=== PATIENT | female | born 1995 | race Two or more races ===

== ENCOUNTER 2017-09-23 14:02 | Emergency (ER) | payer SELFPAY, OTHER ==
[2017-09-23 14:53] LABS: URINE HCG POC HCG POSITIVE (Negative)
[2017-09-23 15:02] LABS: BILIRUBIN,URINE NEGATIVE (NEG); CLARITY,URINE CLEAR; COLOR,URINE YELLOW; GLUCOSE,URINE NEGATIVE (NEG); NITRITE,URINE NEGATIVE (NEG); PROTEIN,URINE NEGATIVE (NEG-TRACE); UROBILINOGEN,URINE 0.2 mg/dL (0.2 mg/dL)
[2017-09-23 15:26] LABS: BACTERIA,URINE FEW /HPF (0-FEW); SQUAMOUS EPITHELIAL CELL,UR MANY /LPF
== END 2017-09-23 16:14 | disposition home or self-care (01) ==
LOC: ER 14:02
DX: O26.891 Other specified pregnancy related conditions, first trimester (principal); O99.711 Diseases of the skin and subcutaneous tissue complicating pregnancy, first trimester; R21 Rash and other nonspecific skin eruption; Z3A.01 Less than 8 weeks gestation of pregnancy
CPT/HCPCS: 81001; 81025; 99283

== ENCOUNTER 2018-05-07 05:42 | Inpatient (IN) | payer OTHER ==
[~2018-05-07] VITALS: Ht 162.6 cm; Wt 71.7 kg
[~2018-05-07 05:42] MED LIST: ONDA4TAB10 SL
[2018-05-07] MEDS ORDERED: IV RINGERS,LACTATED 1000ML 1,000 ML IV SCH ×2 (05:44→11:27)
[2018-05-07] MEDS ORDERED: ACETAMINOPHEN 325 MG TABLET. PO PRN ×2 (05:45→18:30)
[2018-05-07] MEDS ORDERED: BUTORPHANOL 2 MG/ML VIAL. IV PRN (05:45)
[2018-05-07] MEDS ORDERED: TERBUTALINE 1 MG/ML VIAL. SQ PRN (05:45)
[2018-05-07] MEDS ORDERED: OXYTOCIN 30 UNIT/500 ML PREMIX 500 ML IV PRN ×3 (05:45→18:30)
[2018-05-07] MEDS ORDERED: fentaNYL PF VIAL 100 MCG/2 ML VIAL IV PRN (05:45)
[2018-05-07] MEDS ORDERED: 0.9 % SODIUM CHLORIDE 10 ML DISP.SYRIN. IV PRN ×2 (05:45→18:30)
[2018-05-07] MEDS ORDERED: NALBUPHINE 10 MG/ML AMPUL. IV PRN (05:45)
[2018-05-07] MEDS ORDERED: MAG HYDROX/ALUMINUM HYD/SIMETH 30 ML ORAL.SUSP PO PRN ×2 (05:45→18:30)
[2018-05-07] MEDS ORDERED: ONDANSETRON PF 4 MG/2 ML VIAL. IV PRN (05:45)
[2018-05-07] MEDS ORDERED: LIDOCAINE 1% PF 30 ML VIAL. INJ PRN (05:45)
[2018-05-07] MEDS ORDERED: AMPICILLIN SODIUM 2 GM in IV NORMAL SALINE 100ML 100 ML IV ONE (06:00)
[2018-05-07 06:12] VITALS: BP 119/64
[2018-05-07 06:51] LABS: BASO % 1 % (0-3); EOS # 0.1 x10^3/uL (0.0-0.7); EOS % 1 % (0-3); HEMATOCRIT 32.4 % (36.0-47.0); LYMPH # 2.5 x10^3/uL (1.0-4.8); LYMPH % 29 % (24-48); MEAN CORPUSCULAR HEMOGLOBIN 32 pg (25-35); MEAN CORPUSCULAR HGB CONC 34 g/dL (31-37); MEAN CORPUSCULAR VOLUME 93 fL (79-100); MONO # 0.6 x10^3/uL (0.0-1.1); MONO % 7 % (0-9); NEUT # 5.4 x10^3uL (1.8-7.7); NEUT % 63 % (31-73); PLATELET COUNT 297 x10^3/uL (140-400); RED BLOOD COUNT 3.47 x10^6/uL (3.50-5.40); RED CELL DISTRIBUTION WIDTH 14.2 % (11.5-14.5); WHITE BLOOD COUNT 8.6 x10^3/uL (4.0-11.0)
[2018-05-07] MEDS ORDERED: AMPICILLIN SODIUM 1 GM in IV NORMAL SALINE 50ML 50 ML IV SCH (10:00)
[2018-05-07] MEDS ORDERED: ROPIVacaine 0.2% IN 0.9%NACL PF 40 MG/20 ML DISP.SYRIN. EPID PRN (11:30)
[2018-05-07] MEDS ORDERED: BUPIVACAINE MPF 0.25% 30 ML VIAL. EPID PRN (11:30)
[2018-05-07] MEDS ORDERED: NALOXONE 0.4 MG/ML VIAL. IV PRN (11:30)
[2018-05-07] MEDS ORDERED: fentaNYL PF VIAL 100 MCG/2 ML VIAL EPI PRN (11:30)
[2018-05-07] MEDS ORDERED: L&D EPIDURAL SYRINGE 50 ML EPID PRN ×2 (11:30→12:30)
[2018-05-07 14:39] LABS: BILIRUBIN,URINE NEGATIVE (NEG); CLARITY,URINE CLOUDY; COLOR,URINE YELLOW; NITRITE,URINE NEGATIVE (NEG); PROTEIN,URINE NEGATIVE (NEG-TRACE)
[2018-05-07 14:53] LABS: BACTERIA,URINE FEW /HPF (0-FEW); RBC,URINE RARE /HPF (0-2); SQUAMOUS EPITHELIAL CELL,UR OCC /LPF; WBC,URINE OCC /HPF (0-4)
--- NOTE | 2018-05-07 18:25 | PDOC1 ---
OB - History Hx of Present Care: Good Care Ultrasounds: Normal mid trimester US Obstetrical Complications: None Medical Complications: None Past Family/Social History * Past Medical, Surgical, Family and Obstetric Histories reviewed from chart. Rubella: Immune RPR/VDRL: Negative GBS Status: Positive HBsAG: Negative OB - Chief Complaint & HPI Date of Admission: Date of Admission: May 07, 2018 at 05:42 Chief Complaint/History : 2 Para: 1 EGA: 39 Reason for admission: group B positive strep, induction of labor Admission Nurse Assessment Rev: Yes OB - Admission Exam Physical Exam Vitals: VS - Last 72 Hours, by Label Date Time Temp Pulse Resp B/P (MAP) Pulse Ox O2 Delivery O2 Flow Rate FiO2 05/07/18 06:12 97.4 79 18 119/64 (82) Room Air 97.4 HEENT: Normal Heart: Regular Rate Lungs: Clear Abdomen: Gravid, Non tender, Soft Extremities: Edema Reflexes: Normal Cervical Dilatation: 2cm Effacement: 75% Station: -3 Membranes: Intact Heart Rate: Normal Accelerations: Accelerations Present Decelerations: No decelerations Contractions on Admission: None Text A: 39 wks IUP GBS positive IOL secondary discomforts P: Admit IOL pitocin. Start Ampiciilin for GBS status. PAXTON VÁZQUEZ Jr, MD May 07, 2018 18:25
--- NOTE | 2018-05-07 18:27 | PDOC ---
VAGINAL DELIVERY DATE DATE: 05/07/18 TIME: 18:24 : 2 Para: 2 EGA: 39 VAGINAL DELIVERY: VTX VACCUM ASSISTED: No PLACENTA: Spontaneous 9/9 SEX: Female WEIGHT Weight [ 6 lbs. 4 oz] Nuchal Cord: Yes, Times 1 Amniotic Fluid: Clear PAIN: Epidural EPISIOTOMY: No EXTENSION: No EBL 300 ml COMPLICATIONS none CONDITION pt. stable Signs of Intrauterine Infectio: None Shoulder Dystocia: No PAXTON VÁZQUEZ Jr, MD May 07, 2018 18:27
[2018-05-07] MEDS ORDERED: HYDROCORTISONE 1% TOPICAL OINTMENT 30GM TUBE. TP PRN (18:30)
[2018-05-07] MEDS ORDERED: BENZOCAINE 20% TOPICAL AEROSOL SPRAY 57GM CAN. TP PRN (18:30)
[2018-05-07] MEDS ORDERED: SIMETHICONE 80 MG TAB.CHEW PO PRN (18:30)
[2018-05-07] MEDS ORDERED: MMR per PROTOCOL. MC PRN (18:30)
[2018-05-07] MEDS ORDERED: diphenhydrAMINE HCL 25 MG CAPSULE PO PRN (18:30)
[2018-05-07] MEDS ORDERED: ZOLPIDEM 5 MG TABLET. PO PRN (18:30)
[2018-05-07] MEDS ORDERED: PHENYLEPH/MINERAL OIL/PETROLAT RECTAL OINTMENT 28GM TUBE. RC PRN (18:30)
[2018-05-07] MEDS ORDERED: MAGNESIUM HYDROXIDE 2,400 MG/30 ML ORAL.SUSP. PO PRN (18:30)
[2018-05-07] MEDS: IBUPROFEN 400 MG TABLET. PO PRN (18:42)
[2018-05-07 19:48] VITALS: BP 103/67
[2018-05-07 23:03] VITALS: BP 105/67
[2018-05-08 05:09] LABS: BASO # 0.1 x10^3/uL (0.0-0.2); BASO % 1 % (0-3); EOS # 0.1 x10^3/uL (0.0-0.7); EOS % 1 % (0-3); HEMATOCRIT 33.1 % (36.0-47.0); HEMOGLOBIN 11.2 g/dL (12.0-15.5); LYMPH # 3.4 x10^3/uL (1.0-4.8); LYMPH % 32 % (24-48); MEAN CORPUSCULAR HEMOGLOBIN 32 pg (25-35); MEAN CORPUSCULAR HGB CONC 34 g/dL (31-37); MEAN CORPUSCULAR VOLUME 94 fL (79-100); MONO # 0.8 x10^3/uL (0.0-1.1); MONO % 7 % (0-9); NEUT # 6.2 x10^3uL (1.8-7.7); NEUT % 59 % (31-73); PLATELET COUNT 254 x10^3/uL (140-400); RED BLOOD COUNT 3.53 x10^6/uL (3.50-5.40); RED CELL DISTRIBUTION WIDTH 14.5 % (11.5-14.5); WHITE BLOOD COUNT 10.6 x10^3/uL (4.0-11.0)
[2018-05-08] MEDS: IBUPROFEN 400 MG TABLET. PO PRN ×2 (05:41→14:27)
[2018-05-08 06:00] VITALS: BP 103/69
[2018-05-08] MEDS ORDERED: FERROUS SULFATE 325 MG TABLET. PO SCH (08:00)
[2018-05-08] MEDS ORDERED: MEASLES, MUMPS & RUBELLA VACC 0.5 ML VIAL. VAX SQ ONE (08:00)
[2018-05-08] MEDS: DOCUSATE SODIUM 100 MG CAPSULE. PO PRN ×2 (09:06→19:23)
[2018-05-08] MEDS: oxyCODONE/APAP 5/325 1 TAB TABLET PO PRN ×2 (09:06→21:46)
--- NOTE | 2018-05-08 09:08 | PDOC ---
Provider Note Provider Note Doing well VSS Uterus NTTP FU in AM ANTONIO GARCES MD May 08, 2018 09:08
[2018-05-08 15:22] VITALS: BP 99/71
[2018-05-08 18:57] VITALS: BP 102/64
[2018-05-08 21:43] VITALS: BP 102/71
[2018-05-09 00:23] VITALS: BP 116/67
[2018-05-09] MEDS: DOCUSATE SODIUM 100 MG CAPSULE. PO PRN (08:10)
[2018-05-09] MEDS: IBUPROFEN 400 MG TABLET. PO PRN (08:10)
[2018-05-09 11:21] VITALS: BP 104/72
--- NOTE | 2018-05-09 14:32 | PDOC3 ---
OB DISCHARGE SUMMARY DATE OF ADMISSION: 05/07/18 DATE OF DISCHARGE: 05/09/18 REASON FOR ADMISSION: Induction of labor PROCEDURES: Ultrasound INTRAPARTUM PROCEDURES: Spontanous Vag Deliv PROCEDURES: None OPERATIONS: None DISCHARGE DIAGNOSIS: Term Delivered DISCHARGE INFORMATION: Activity, Diet HOSPITAL COURSE Unremarkable CONDITION AT DISCHARGE Stable ANTONIO GARCES MD May 09, 2018 14:32
[2018-05-09] MEDS ORDERED: HYDR-3164 PO (14:34)
[2018-05-09] MEDS ORDERED: NAPR-514 PO (14:34)
== END 2018-05-09 15:23 | disposition home or self-care (01) | DRG 807 ==
LOC: 3 SO LND 05:42 → 3 NORTH 19:39
PROVIDERS: ADMIT Specialist; ATTEND Specialist
PROC: 10E0XZZ Delivery of Products of Conception, External Approach (ICD-10-PCS; principal; 2018-05-07)
PROC: 10907ZC Drainage of Amniotic Fluid, Therapeutic from Products of Conception, Via Natural or Artificial Opening (ICD-10-PCS; 2018-05-07)
PROC: 3E033VJ Introduction of Other Hormone into Peripheral Vein, Percutaneous Approach (ICD-10-PCS; 2018-05-07)
PROC: 00HU33Z Insertion of Infusion Device into Spinal Canal, Percutaneous Approach (ICD-10-PCS; 2018-05-07)
PROC: 3E0R3BZ Introduction of Anesthetic Agent into Spinal Canal, Percutaneous Approach (ICD-10-PCS; 2018-05-07)
DX: O99.824 Streptococcus B carrier state complicating childbirth (principal); Z37.0 Single live birth; O69.81X0 Labor and delivery complicated by cord around neck, without compression, not applicable or unspecified; Z3A.39 39 weeks gestation of pregnancy
CPT/HCPCS: 36415; 81001; 85025; 86592; 86762; 86850; 86900; 86901; 87086; 87340; 90471; 90707; J0290; J2590; J2795; J7120

== ENCOUNTER → 2018-07-31 | Outpatient (CLI) | payer OTHER ==
[~2018-07-31] VITALS: Ht 167.6 cm; Wt 67.6 kg
[~2018-07-31] MED LIST changes: +HYDR-3164 PO; +NAPR-514 PO; +NAPR-677 PO; +NORMAL SALINE IV ONE; +OMEP20CA10 PO; +SERT50TA PO; +SINCALIDE IV ONE
--- NOTE | 2018-07-31 12:50 | RAD ---
Indication: Abdominal pain for 4 years TECHNIQUE: Nuclear medicine HIDA scan with 5.5 mCi of technetium 99 M Choletec. Ejection fraction was likely left infusion of 1.4 mcg of cholecystokinin. COMPARISON: Ultrasound from 11/07/2017. FINDINGS: Gallbladder is confidently visualized at 5 minutes and continues to fill in a retrograde fashion. Small bowel activity is confidently seen at 30 minutes. Ejection fraction of 74 percent. IMPRESSION: 1. No scintigraphic evidence of cystic duct obstruction. 2. Normal ejection fraction. Electronically signed by: Howie Coleman DO (07/31/2018 12:47 PM) [facility]
== END | disposition home or self-care (01) ==
LOC: NM 09:16
PROVIDERS: ATTEND Internal Medicine Gastroenterology
DX: R10.13 Epigastric pain (principal)
CPT/HCPCS: 78227; A9537; J2805

== ENCOUNTER → 2018-08-11 | Day surgery (SDC) | payer OTHER ==
[~2018-08-11] MED LIST changes: +DEXAMETHASONE SOD PHOS 20 MG/5 ML VIAL. ONE; +IV RINGERS,LACTATED 1000ML 1,000 ML IV SCH; +LIDOCAINE 2% PF 5 ML VIAL. ONE; -NORMAL SALINE IV ONE; +PROPOFOL 20 ML IV ONE; -SINCALIDE IV ONE; +diphenhydrAMINE 50 MG/ML VIAL ONE
[2018-08-11 16:57] VITALS: BP 112/79
[2018-08-11 17:12] LABS: U PREG PATIENT NEGATIVE (NEG)
--- NOTE | 2018-08-13 13:10 | PATHOLOGY ---
[place] Accession Number: [id number] . 01 Material submitted: . DUODENAL BIOPSIES . 01 Clinical history: . Abdominal pain . 02 Diagnosis: Duodenal biopsies: - No significant pathologic abnormalities. (JPM:mary lou; 08/13/2018) QMS/08/13/2018 . 02 Comment: Sections of the duodenal biopsy reveal segments of duodenal and small intestine mucosa. Where best oriented, the mucosal villi show no sprue-like changes or significant inflammatory changes. There are a couple of mucosal-associated lymphoid aggregates. (JPM:mary lou; 08/13/2018) . 02 Electronically signed: . Freddy Velez MD, Pathologist NPI- [id number] . 01 Gross description: . The specimen is received in formalin, labeled "Daria Zamorano, duodenal biopsies, rule out celiac", are several irregular yoder mucosal fragments measuring 0.7 x 0.7 x 0.2 cm in aggregate, entirely submitted in A1. ([facility]; 08/12/2018) SHS/SHS . 02 Pathologist provided ICD-10: R10.9 . 02 CPT . 796875 Specimen Comment: A courtesy copy of this report has been sent to Specimen Comment: [phone]. Specimen Comment: Report sent to Specimen Comment: A duplicate report has been generated due to demographic updates. Performed at: 01 [facility] [address], [place] [id number] MD Avery eNves MD Phone: [phone] Performed at: 02 [facility] [address] [place], [place] [id number] MD Freddy Velez MD Phone: [phone]
== END | disposition home or self-care (01) ==
LOC: SURG 15:10
PROVIDERS: ATTEND Internal Medicine Gastroenterology
DX: K31.89 Other diseases of stomach and duodenum (principal); K21.9 Gastro-esophageal reflux disease without esophagitis; F41.9 Anxiety disorder, unspecified; F32.9 Major depressive disorder, single episode, unspecified; Z72.0 Tobacco use; Z72.89 Other problems related to lifestyle; Z79.899 Other long term (current) drug therapy
CPT/HCPCS: 43239; 81025; 88305; J1100; J1200; J2001; J2704

== ENCOUNTER 2019-03-01 10:38 | Day surgery (SDC) | payer OTHER ==
[~2019-03-01 10:38] MED LIST changes: -DEXAMETHASONE SOD PHOS 20 MG/5 ML VIAL. ONE; +HYDROmorphone 2 MG/ML VIAL IV PRN; -LIDOCAINE 2% PF 5 ML VIAL. ONE; +MORPHINE SULFATE 2 MG/ML VIAL. IV PRN; +ONDANSETRON PF 4 MG/2 ML VIAL. IV PRN; +PROCHLORPERAZINE 10 MG/2 ML VIAL. IV PRN; -PROPOFOL 20 ML IV ONE; -diphenhydrAMINE 50 MG/ML VIAL ONE; +fentaNYL PF VIAL 100 MCG/2 ML VIAL IV PRN
[2019-03-01] MEDS ORDERED: MIDAZOLAM HCL/PF 2 MG/2 ML VIAL. ONE (11:13)
[2019-03-01] MEDS ORDERED: fentaNYL PF VIAL 100 MCG/2 ML VIAL ONE (11:13)
[2019-03-01] MEDS ORDERED: SEVOFLURANE 31 TO 60 MINUTES. IH ONE (11:13)
[2019-03-01] MEDS ORDERED: LIDOCAINE 2% PF 5 ML VIAL. ONE (11:14)
[2019-03-01] MEDS ORDERED: PROPOFOL 20 ML IV ONE (11:14)
[2019-03-01] MEDS ORDERED: KETOROLAC 30 MG/ML VIAL. ONE (11:14)
[2019-03-01] MEDS ORDERED: ONDANSETRON PF 4 MG/2 ML VIAL. ONE (11:14)
[2019-03-01] MEDS ORDERED: DEXAMETHASONE SOD PHOS 4 MG/ML VIAL ONE (11:14)
[2019-03-01] MEDS ORDERED: POTASSIUM IODIDE/IODINE 14 ML SOLUTION. TP ONE (11:45)
[2019-03-01] MEDS ORDERED: BUPIVACAINE-EPI 0.5%-1:200000 MPF 30 ML VIAL. INJ ONE (12:30)
--- NOTE | 2019-03-01 13:41 | PDOC ---
BRIEF OPERATIVE NOTE Pre-Op Diagnosis Cervical dysplasia Post-Op Diagnosis Same Procedure Performed LEEP and ECC Surgeon Octavio Anesthesia Type: General Blood Loss 30cc Specimens Obtained Leep cone ECC Complications None ANTONIO GARCES MD Mar 01, 2019 13:41
[2019-03-01] MEDS ORDERED: HYDR-3164 PO (13:45)
[2019-03-01] MEDS ORDERED: NAPR-514 PO (13:45)
--- NOTE | 2019-03-01 14:13 | OP ---
DATE OF SURGERY: 03/01/2019 PREOPERATIVE DIAGNOSIS: Cervical dysplasia. POSTOPERATIVE DIAGNOSIS: Cervical dysplasia. PROCEDURE: LEEP cone with ECC. SURGEON: Rye Cunningham MD VISION MIXER: None. ANESTHESIA: General. ESTIMATED BLOOD LOSS: 30 mL. SPECIMENS: LEEP cone and ECC. COMPLICATIONS: None. CONDITION: Stable. DESCRIPTION OF PROCEDURE: Risks, benefits, indications, alternatives, expectations were discussed in detail with the patient and the patient's . The patient was brought to OR theater, placed in dorsal lithotomy position in Sharan stirrups. After adequate general anesthesia, the patient was prepped and draped in usual sterile manner. [place] speculum was placed in the vaginal vault. Cervix was identified. LEEP cone was done in the usual fashion. Prior to this, the ECC was performed and placed on Telfa sponge. Area of bleeding was controlled with [id number] stitches at 6 o'clock area with Bovie cautery. Lugol's was used inadvertently thinking ____ Monsel's without any complications. It did, however, help control the bleeding. Procedure was terminated. Vaginal vault was wiped free of any blood or tissue. Sponge, needle, and instrument counts were correct x 2 per nursing staff. The patient went to postop anesthesia recovery in stable condition. REY CUNNINGHAM MD DR: RAYSHAWN/radha JOB#: [id number] / [id number]
[2019-03-01 14:45] VITALS: BP 136/63
== END 2019-03-01 15:17 | disposition home or self-care (01) ==
LOC: SURG 10:38
PROVIDERS: ATTEND Specialist
DX: N87.9 Dysplasia of cervix uteri, unspecified (principal); K21.9 Gastro-esophageal reflux disease without esophagitis; E66.9 Obesity, unspecified; F41.9 Anxiety disorder, unspecified; F32.9 Major depressive disorder, single episode, unspecified; F15.90 Other stimulant use, unspecified, uncomplicated; Z68.29 Body mass index [BMI] 29.0-29.9, adult; Z98.890 Other specified postprocedural states
CPT/HCPCS: 57522; 81025; A7015; J1100; J1885; J2001; J2250; J2405; J2704; J3010; J3490